=== PATIENT | male | born 1940 | race Caucasian/White ===

== ENCOUNTER 2017-03-21 09:13 | Inpatient (IN) | payer OTHER ==
[~2017-03-21] VITALS: Ht 167.6 cm; Wt 58.1 kg
[2017-03-21 09:46] LABS: EOSINOPHIL (%) 3.6 % (0-5); EOSINOPHIL COUNT 0.3 K/uL (0-0.3); HEMATOCRIT 27.3 % (38.0-50.0); IMMATURE GRANULOCYTE (%) 0.7 % (0.0-0.7); IMMATURE GRANULOCYTE COUNT 0.1 K/uL; INSTRUMENT ABS NEUTROPHIL CT 7.1 K/uL; LYMPHOCYTE COUNT 0.7 K/uL (1.0-2.8); MCH 29.1 PG (29.0-34.0); MCHC 31.9 G/DL (30.0-36.0); MCV 91.3 FL (86-99); MONOCYTE (%) 8.5 % (3-12); MONOCYTE COUNT 0.8 K/uL (0-0.8); NEUTROPHIL (%) 79.4 % (45-76); NEUTROPHIL COUNT 7.1 K/uL (1.8-6.4); PLATELET COUNT 158 K/uL (156-360); RBC DIS.WIDTH-CV 15.8 % (11.8-14.6); RBC DIS.WIDTH-SD 51.8 % (39-53); RED BLOOD COUNT 2.99 M/uL (4.00-5.50); WHITE BLOOD COUNT 8.9 K/uL (4.1-10.2)
[2017-03-21 09:54] LABS: CHLORIDE 96 mEq/L (99-109); POTASSIUM 4.3 mEq/L (3.7-5.4); SODIUM 138 mEq/L (136-147)
[2017-03-21 09:56] LABS: GLUCOSE 98 mg/dL (70-99)
[2017-03-21 09:57] LABS: ANION GAP 17 MEQ/L (2-14)
[2017-03-21 09:58] LABS: TOTAL BILIRUBIN 0.4 mg/dL (0.0-1.0)
[2017-03-21 10:00] LABS: ALKALINE PHOSPHATASE 58 IU/L (3-129); GFR ESTIMATE (CALCULATED) 6 mL/min/
[2017-03-21 10:01] LABS: UREA NITROGEN (BUN) 77 mg/dL (9-23)
[2017-03-21 10:07] LABS: TROP-I INTERPRETATION POSITIVE; TROPONIN-I 0.76 ng/mL (0.0-0.30)
[2017-03-21] MEDS ORDERED: ASPIR 8181 M1 PO (11:33)
[2017-03-21] MEDS ORDERED: KENALOG IN ORABA5 GM DT (11:33)
[2017-03-21] MEDS ORDERED: PROAIR HFA8.5 GM IH (11:35)
[2017-03-21] MEDS ORDERED: BRIMONIDINE TART5 ML RIGHT EYE (11:35)
[2017-03-21] MEDS ORDERED: FLONASE16 G1 BOTH NARES (11:36)
[2017-03-21] MEDS ORDERED: NIFEDIPINE ER60 MG PO (11:36)
[2017-03-21] MEDS ORDERED: ATARAX,VISTARIL25 MG PO (11:38)
[2017-03-21] MEDS ORDERED: LASIX40 MG PO (11:38)
[2017-03-21] MEDS ORDERED: TRAMADOL HCL50 MG PO (11:39)
[2017-03-21] MEDS ORDERED: ZANTAC150 MG PO (11:39)
[2017-03-21] MEDS ORDERED: COREG25 M1 PO (11:39)
[2017-03-21] MEDS ORDERED: TOPROL XL25 MG PO (11:40)
[2017-03-21] MEDS ORDERED: ATORVASTATIN CA20 MG PO (11:40)
[2017-03-21] MEDS ORDERED: MUCINEX600 MG PO (11:43)
[2017-03-21] MEDS ORDERED: EXCEDRIN EXTRA1 EACH PO (11:44)
[2017-03-21 12:04] VITALS: BP 170/72
[2017-03-21 15:22] LABS: INTER. NORMALIZED RATIO 1.1; PROTHROMBIN TIME 11.6 (9.2-11.2); PTT 36.2 (25-32)
[2017-03-21 16:13] LABS: TROP-I INTERPRETATION POSITIVE; TROPONIN-I 0.64 ng/mL (0.0-0.30)
[2017-03-21 22:00] VITALS: BP 181/85
[2017-03-21 22:13] LABS: TROP-I INTERPRETATION INDETERMINATE; TROPONIN-I 0.56 ng/mL (0.0-0.30)
[2017-03-21 23:51] VITALS: BP 107/52
[2017-03-22 03:40] VITALS: BP 144/65
[2017-03-22 07:04] LABS: ANION GAP 14 MEQ/L (2-14); CHLORIDE 97 MEQ/L (99-109); POTASSIUM 4.5 MEQ/L (3.7-5.4); SAMPLE HEMOLYSIS CHECK 0; SAMPLE ICTERIC CHECK 0; SAMPLE LIPEMIA CHECK 0; SODIUM 137 MEQ/L (136-147); UREA NITROGEN (BUN) 43 mg/dL (9-23)
[2017-03-22 07:05] LABS: GFR ESTIMATE (CALCULATED) 10 mL/min/; GLUCOSE 181 mg/dL (70-99)
[2017-03-22 07:10] VITALS: BP 154/71
[2017-03-22 11:47] VITALS: BP 172/77
[2017-03-22 12:04] VITALS: BP 130/62
[2017-03-22] MEDS ORDERED: CALCIUM ACETAT667 MG PO (15:42)
[2017-03-22 15:57] VITALS: BP 120/52
[2017-03-22 20:00] VITALS: BP 151/72
[2017-03-23] VITALS: BP 135/63
[2017-03-23 05:00] VITALS: BP 156/78
[2017-03-23 10:07] LABS: ANION GAP 18 MEQ/L (2-14); CHLORIDE 95 MEQ/L (99-109); POTASSIUM 3.9 MEQ/L (3.7-5.4); SAMPLE HEMOLYSIS CHECK 0; SAMPLE ICTERIC CHECK 0; SAMPLE LIPEMIA CHECK 0; SODIUM 136 MEQ/L (136-147)
[2017-03-23 10:09] LABS: MCH 29.7 PG (29.0-34.0); MCHC 31.7 G/DL (30.0-36.0); MCV 93.8 FL (86-99); NRBC (%) 0.2 /100 WBC (0-0); PLATELET COUNT 192 K/uL (156-360); RBC DIS.WIDTH-CV 16.9 % (11.8-14.6); RBC DIS.WIDTH-SD 55.7 % (39-53); RED BLOOD COUNT 2.56 M/uL (4.00-5.50)
[2017-03-23 10:38] LABS: WHITE BLOOD COUNT 13.6 K/uL (4.1-10.2)
[2017-03-23 10:46] LABS: GFR ESTIMATE (CALCULATED) 7 mL/min/; GLUCOSE 156 mg/dL (70-99); IRON 67 MCG/DL (35-150); UREA NITROGEN (BUN) 75 mg/dL (9-23)
[2017-03-23 11:33] VITALS: BP 177/82
[2017-03-23 15:13] VITALS: BP 139/63
[2017-03-23 21:01] VITALS: BP 166/74
[2017-03-23 23:25] VITALS: BP 126/62
[2017-03-24 06:51] VITALS: BP 151/68
[2017-03-24 07:25] LABS: HEMATOCRIT 25.7 % (38.0-50.0); MCH 29.4 PG (29.0-34.0); MCHC 31.1 G/DL (30.0-36.0); MCV 94.5 FL (86-99); MEAN PLAT.VOLUME 11.5 uM^3 (9.0-12.4); PLATELET COUNT 224 K/uL (156-360); RBC DIS.WIDTH-CV 17.2 % (11.8-14.6); RBC DIS.WIDTH-SD 56.7 % (39-53); RED BLOOD COUNT 2.72 M/uL (4.00-5.50); WHITE BLOOD COUNT 12.5 K/uL (4.1-10.2)
[2017-03-24 08:08] LABS: ANION GAP 14 MEQ/L (2-14); CHLORIDE 95 MEQ/L (99-109); GFR ESTIMATE (CALCULATED) 9 mL/min/; POTASSIUM 4.6 MEQ/L (3.7-5.4); SAMPLE HEMOLYSIS CHECK 0; SAMPLE ICTERIC CHECK 0; SAMPLE LIPEMIA CHECK 0; SODIUM 135 MEQ/L (136-147); UREA NITROGEN (BUN) 53 mg/dL (9-23)
[2017-03-24 08:16] LABS: GLUCOSE 79 mg/dL (70-99)
[2017-03-24] MEDS ORDERED: PREDNISONE10 MG PO (11:30)
[2017-03-24] MEDS ORDERED: SPIRIVA RESPIMAT4 GM IH (11:30)
[2017-03-24] MEDS ORDERED: ADVAIR HFA120 INHALA IH (11:30)
[2017-03-24] MEDS ORDERED: CLOPIDOGREL75 MG PO (11:30)
[2017-03-24] MEDS ORDERED: APRESOLINE25 MG PO (11:30)
[2017-03-24 12:20] VITALS: BP 99/48
[2017-03-24 15:01] VITALS: BP 139/63
[2017-03-24 19:17] VITALS: BP 173/74
[2017-03-24 23:23] VITALS: BP 150/67
[2017-03-25 03:45] VITALS: BP 163/68
[2017-03-25 08:13] VITALS: BP 174/97
[2017-03-25 11:02] VITALS: BP 130/63
[2017-03-25 14:47] VITALS: BP 166/73
== END 2017-03-25 16:15 | DRG 280 ==
LOC: EME 09:13 → EDOF 10:42 → 4EAST 10:42
PROVIDERS: Emergency Medicine; Internal Medicine; Internal Medicine Cardiovascular Disease; Physician Assistant
PROC: 4A023N7 Measurement of Cardiac Sampling and Pressure, Left Heart, Percutaneous Approach (ICD-10-PCS; principal; 2017-03-21)
PROC: B2151ZZ Fluoroscopy of Left Heart using Low Osmolar Contrast (ICD-10-PCS; principal; 2017-03-21)
PROC: B2111ZZ Fluoroscopy of Multiple Coronary Arteries using Low Osmolar Contrast (ICD-10-PCS; principal; 2017-03-21)
PROC: 5A1D60Z (ICD-10-PCS; 2017-03-21)
DX: I21.4 Non-ST elevation (NSTEMI) myocardial infarction (principal); N18.6 End stage renal disease; I12.0 Hypertensive chronic kidney disease with stage 5 chronic kidney disease or end stage renal disease; I50.9 Heart failure, unspecified; J40 Bronchitis, not specified as acute or chronic; J44.1 Chronic obstructive pulmonary disease with (acute) exacerbation; I73.9 Peripheral vascular disease, unspecified; I25.10 Atherosclerotic heart disease of native coronary artery without angina pectoris; I48.0 Paroxysmal atrial fibrillation; R60.9 Edema, unspecified; E78.5 Hyperlipidemia, unspecified; D63.1 Anemia in chronic kidney disease; Z95.5 Presence of coronary angioplasty implant and graft; Z99.2 Dependence on renal dialysis; I25.2 Old myocardial infarction; Z87.891 Personal history of nicotine dependence; Z99.81 Dependence on supplemental oxygen
CPT/HCPCS: 71010; 80048; 80053; 83540; 83880; 84100; 84466; 84484; 85025; 85027; 85610; 85730; 93005; 94640; 94640 76; 94760; 94799; 99281; 99285; C1769; C1887; J0360; J0881; J1644; J1756; J1940; J2250; J2920; J2930; J3010; J7512

== ENCOUNTER 2017-04-18 02:22 | Inpatient (IN) | payer OTHER ==
[~2017-04-18] VITALS: Ht 167.6 cm; Wt 58.5 kg
[~2017-04-18 02:22] MED LIST: ADVAIR HFA120 INHALA IH; APRESOLINE25 MG PO; ASPIR 8181 M1 PO; ATARAX,VISTARIL25 MG PO; ATORVASTATIN CA20 MG PO; BRIMONIDINE TART5 ML RIGHT EYE; CALCIUM ACETAT667 MG PO; CLOPIDOGREL75 MG PO; COREG25 M1 PO; EXCEDRIN EXTRA1 EACH PO; FLONASE16 G1 BOTH NARES; KENALOG IN ORABA5 GM DT; LASIX40 MG PO; MUCINEX600 MG PO; NIFEDIPINE ER60 MG PO; PREDNISONE10 MG PO; PROAIR HFA8.5 GM IH; SPIRIVA RESPIMAT4 GM IH; TOPROL XL25 MG PO; TRAMADOL HCL50 MG PO; ZANTAC150 MG PO
[2017-04-18 03:17] LABS: CHLORIDE 92 mEq/L (99-109); POTASSIUM 4.3 mEq/L (3.7-5.4); SODIUM 133 mEq/L (136-147)
[2017-04-18 03:19] LABS: GLUCOSE 107 mg/dL (70-99)
[2017-04-18 03:20] LABS: ANION GAP 13 MEQ/L (2-14); INTER. NORMALIZED RATIO 1.1; PROTHROMBIN TIME 10.9 (9.2-11.2); PTT 38.7 (25-32)
[2017-04-18 03:21] LABS: HEMATOCRIT 27.8 % (38.0-50.0); MCH 29.9 PG (29.0-34.0); MCHC 31.7 G/DL (30.0-36.0); MCV 94.6 FL (86-99); PLATELET COUNT 197 K/uL (156-360); RBC DIS.WIDTH-CV 16.9 % (11.8-14.6); RED BLOOD COUNT 2.94 M/uL (4.00-5.50); WHITE BLOOD COUNT 8.6 K/uL (4.1-10.2)
[2017-04-18 03:23] LABS: GFR ESTIMATE (CALCULATED) 8 mL/min/; UREA NITROGEN (BUN) 58 mg/dL (9-23)
[2017-04-18 03:31] LABS: TROP-I INTERPRETATION NEGATIVE; TROPONIN-I 0.12 ng/mL (0.0-0.30)
[2017-04-18 07:56] VITALS: BP 149/80
[2017-04-18 10:50] LABS: TROP-I INTERPRETATION NEGATIVE
[2017-04-18 12:07] VITALS: BP 169/77
[2017-04-18 17:25] VITALS: BP 161/70
[2017-04-18 18:42] LABS: TROP-I INTERPRETATION NEGATIVE; TROPONIN-I 0.13 ng/mL (0.0-0.30)
[2017-04-18 19:47] VITALS: BP 130/62
[2017-04-18 23:26] VITALS: BP 142/64
[2017-04-19 03:58] VITALS: BP 140/64
[2017-04-19 06:00] LABS: TROP-I INTERPRETATION NEGATIVE
[2017-04-19 08:07] VITALS: BP 159/72
[2017-04-19 15:26] VITALS: BP 156/67
[2017-04-19 19:44] VITALS: BP 164/70
[2017-04-19 23:56] VITALS: BP 179/85
[2017-04-20 01:57] VITALS: BP 188/62
[2017-04-20 04:10] VITALS: BP 168/75
[2017-04-20 07:18] LABS: HEMATOCRIT 28.6 % (38.0-50.0); MCHC 31.1 G/DL (30.0-36.0); MCV 96.3 FL (86-99); MEAN PLAT.VOLUME 10.9 uM^3 (9.0-12.4); PLATELET COUNT 243 K/uL (156-360); RBC DIS.WIDTH-CV 17.1 % (11.8-14.6); RBC DIS.WIDTH-SD 60.4 % (39-53); RED BLOOD COUNT 2.97 M/uL (4.00-5.50); WHITE BLOOD COUNT 8.4 K/uL (4.1-10.2)
[2017-04-20 07:39] LABS: ANION GAP 9 MEQ/L (2-14); CHLORIDE 96 MEQ/L (99-109); GFR ESTIMATE (CALCULATED) 8 mL/min/; SAMPLE HEMOLYSIS CHECK 0; SAMPLE ICTERIC CHECK 0; SAMPLE LIPEMIA CHECK 0; SODIUM 133 MEQ/L (136-147); UREA NITROGEN (BUN) 46 mg/dL (9-23)
[2017-04-20 07:40] LABS: GLUCOSE 74 mg/dL (70-99)
[2017-04-20 07:41] LABS: POTASSIUM 5.9 MEQ/L (3.7-5.4)
[2017-04-20 20:00] VITALS: BP 145/65
[2017-04-21] VITALS (7 sets, daily range): BP systolic 143–177; BP diastolic 66–90
[2017-04-21 11:38] LABS: HBSG INDEX 0.24
[2017-04-21 11:39] LABS: AHBS INDEX 0.97; HEPATITIS B SURFACE ANTIBODY Nonreactive
[2017-04-21 14:08] LABS: AHBS INDEX 0.51; HEPATITIS B SURFACE ANTIBODY Nonreactive
[2017-04-22 03:57] VITALS: BP 148/68
[2017-04-22 07:38] LABS: ANION GAP 14 MEQ/L (2-14); CHLORIDE 97 MEQ/L (99-109); GFR ESTIMATE (CALCULATED) 8 mL/min/; GLUCOSE 74 mg/dL (70-99); POTASSIUM 4.9 MEQ/L (3.7-5.4); SAMPLE HEMOLYSIS CHECK 0; SAMPLE ICTERIC CHECK 0; SAMPLE LIPEMIA CHECK 0; SODIUM 137 MEQ/L (136-147); UREA NITROGEN (BUN) 52 mg/dL (9-23)
[2017-04-22 07:43] VITALS: BP 159/73
[2017-04-22 11:47] VITALS: BP 144/76
[2017-04-22 16:21] VITALS: BP 194/84
[2017-04-22 19:35] VITALS: BP 187/76
[2017-04-22 23:31] VITALS: BP 172/77
[2017-04-23 03:56] VITALS: BP 175/74
[2017-04-23 07:25] VITALS: BP 177/74
[2017-04-23 08:27] LABS: HEMATOCRIT 27.8 % (38.0-50.0); MCH 30.3 PG (29.0-34.0); MCHC 32.4 G/DL (30.0-36.0); MCV 93.6 FL (86-99); MEAN PLAT.VOLUME 10.8 uM^3 (9.0-12.4); PLATELET COUNT 288 K/uL (156-360); RBC DIS.WIDTH-CV 16.9 % (11.8-14.6); RBC DIS.WIDTH-SD 57.5 % (39-53); RED BLOOD COUNT 2.97 M/uL (4.00-5.50); WHITE BLOOD COUNT 8.4 K/uL (4.1-10.2)
[2017-04-23 08:47] LABS: ANION GAP 13 MEQ/L (2-14); CHLORIDE 95 MEQ/L (99-109); GFR ESTIMATE (CALCULATED) 6 mL/min/; GLUCOSE 116 mg/dL (70-99); POTASSIUM 4.9 MEQ/L (3.7-5.4); SAMPLE HEMOLYSIS CHECK 0; SAMPLE ICTERIC CHECK 0; SAMPLE LIPEMIA CHECK 0; SODIUM 135 MEQ/L (136-147); UREA NITROGEN (BUN) 70 mg/dL (9-23)
[2017-04-23 12:06] VITALS: BP 126/61
[2017-04-23 15:31] VITALS: BP 124/58
[2017-04-23 20:04] VITALS: BP 138/66
[2017-04-23 23:57] VITALS: BP 136/63
[2017-04-24 03:48] VITALS: BP 132/63
[2017-04-24 07:04] VITALS: BP 157/70
[2017-04-24 07:14] LABS: ALKALINE PHOSPHATASE 72 IU/L (3-129); ANION GAP 11 MEQ/L (2-14); CHLORIDE 93 MEQ/L (99-109); POTASSIUM 4.7 MEQ/L (3.7-5.4); SAMPLE HEMOLYSIS CHECK 0; SAMPLE ICTERIC CHECK 0; SAMPLE LIPEMIA CHECK 0; SODIUM 135 MEQ/L (136-147); TOTAL BILIRUBIN 0.3 MG/DL (0.0-1.0); UREA NITROGEN (BUN) 38 mg/dL (9-23)
[2017-04-24 07:16] LABS: GFR ESTIMATE (CALCULATED) 10 mL/min/; GLUCOSE 82 mg/dL (70-99)
[2017-04-24] MEDS ORDERED: AUGMENTIN875 MG PO (08:23)
[2017-04-24] MEDS ORDERED: AUGMENTIN500 MG PO (09:00)
[2017-04-24 09:48] LABS: INTACT PARATHYROID HORMONE 77 pg/mL (10-69)
== END 2017-04-24 11:36 | DRG 190 ==
LOC: EME → EDBD 02:22 → EME 02:22 → 3EAST 04:32 → EDOF 04:32 → 3EAST 07:06
PROVIDERS: Emergency Medicine; Internal Medicine; Internal Medicine Cardiovascular Disease; Internal Medicine Nephrology
DX: J44.0 Chronic obstructive pulmonary disease with (acute) lower respiratory infection (principal); J18.9 Pneumonia, unspecified organism; I13.2 Hypertensive heart and chronic kidney disease with heart failure and with stage 5 chronic kidney disease, or end stage renal disease; N18.6 End stage renal disease; I48.91 Unspecified atrial fibrillation; I25.82 Chronic total occlusion of coronary artery; E83.52 Hypercalcemia; I50.32 Chronic diastolic (congestive) heart failure; E78.5 Hyperlipidemia, unspecified; I25.119 Atherosclerotic heart disease of native coronary artery with unspecified angina pectoris; D63.1 Anemia in chronic kidney disease; I25.2 Old myocardial infarction; I73.9 Peripheral vascular disease, unspecified; Z80.1 Family history of malignant neoplasm of trachea, bronchus and lung; Z87.891 Personal history of nicotine dependence; Z95.5 Presence of coronary angioplasty implant and graft; Z99.2 Dependence on renal dialysis
CPT/HCPCS: 71010; 71020; 80048; 80053; 80069; 83605; 83970; 84100; 84484; 85027; 85610; 85730; 86706; 87040; 87340; 93005; 94010; 94640; 94640 76; 94760; 94799; 99202; 99281; 99285; J0456; J0692; J0696; J0881; J1644; J2270; J2405; J7050; Q0177

== ENCOUNTER 2017-05-07 16:36 | Inpatient (IN) | payer OTHER ==
[~2017-05-07] VITALS: Ht 167.6 cm; Wt 55.0 kg
[~2017-05-07 16:36] MED LIST changes: +AUGMENTIN500 MG PO; +AUGMENTIN875 MG PO
[2017-05-07 17:25] LABS: HEMATOCRIT 36.2 % (38.0-50.0); MCH 29.7 PG (29.0-34.0); MCV 92.6 FL (86-99); MEAN PLAT.VOLUME 10.8 uM^3 (9.0-12.4); PLATELET COUNT 204 K/uL (156-360); RBC DIS.WIDTH-CV 20.1 % (11.8-14.6); RED BLOOD COUNT 3.91 M/uL (4.00-5.50); WHITE BLOOD COUNT 15.6 K/uL (4.1-10.2)
[2017-05-07 18:02] LABS: CHLORIDE 97 mEq/L (99-109); POTASSIUM 3.8 mEq/L (3.7-5.4); SODIUM 140 mEq/L (136-147)
[2017-05-07 18:04] LABS: GLUCOSE 110 mg/dL (70-99)
[2017-05-07 18:05] LABS: ANION GAP 14 MEQ/L (2-14)
[2017-05-07 18:08] LABS: GFR ESTIMATE (CALCULATED) 16 mL/min/
[2017-05-07 18:09] LABS: UREA NITROGEN (BUN) 30 mg/dL (9-23)
[2017-05-07 18:13] LABS: TROP-I INTERPRETATION INDETERMINATE; TROPONIN-I 0.35 ng/mL (0.0-0.30)
[2017-05-07 21:42] VITALS: BP 200/89
[2017-05-07 22:44] LABS: TROP-I INTERPRETATION INDETERMINATE; TROPONIN-I 0.48 ng/mL (0.0-0.30)
[2017-05-08] VITALS (8 sets, daily range): BP systolic 135–186; BP diastolic 65–91
[2017-05-08 00:50] LABS: INTER. NORMALIZED RATIO 1.1; PTT 33.8 (25-32)
[2017-05-08] MEDS ORDERED: OMEPRAZOLE20 MG PO (08:55)
[2017-05-08] MEDS ORDERED: MIRTAZAPINE7.5 MG PO (08:56)
[2017-05-08] MEDS ORDERED: SPIRIVA RESPIMAT4 GM IH (08:57)
[2017-05-08] MEDS ORDERED: ADVAIR HFA120 INHALA IH (08:58)
[2017-05-08] MEDS ORDERED: HYDRALAZINE HCL50 MG PO (09:03)
[2017-05-08] MEDS ORDERED: DULCOLAX10 MG PR (09:05)
[2017-05-08] MEDS ORDERED: FLEET ENEMA-AD118 ML PR (09:06)
[2017-05-08] MEDS ORDERED: MILK OF MAGN PO (09:07)
[2017-05-08 11:14] LABS: TROP-I INTERPRETATION POSITIVE
[2017-05-08 15:29] LABS: TROP-I INTERPRETATION INDETERMINATE; TROPONIN-I 0.56 ng/mL (0.0-0.30)
[2017-05-09 00:25] VITALS: BP 176/81
[2017-05-09 03:00] VITALS: BP 146/69
[2017-05-09 06:21] LABS: EOSINOPHIL (%) 0 % (0-5); HEMATOCRIT 29.3 % (38.0-50.0); IMMATURE GRANULOCYTE (%) 0.8 % (0.0-0.7); IMMATURE GRANULOCYTE COUNT 0.1 K/uL; INSTRUMENT ABS NEUTROPHIL CT 11.6 K/uL; LYMPHOCYTE COUNT 0.4 K/uL (1.0-2.8); MCH 29.9 PG (29.0-34.0); MCHC 31.7 G/DL (30.0-36.0); MCV 94.2 FL (86-99); MEAN PLAT.VOLUME 12.1 uM^3 (9.0-12.4); MONOCYTE (%) 3.7 % (3-12); MONOCYTE COUNT 0.5 K/uL (0-0.8); NEUTROPHIL COUNT 11.6 K/uL (1.8-6.4); PLATELET COUNT 143 K/uL (156-360); RBC DIS.WIDTH-CV 19.1 % (11.8-14.6); RBC DIS.WIDTH-SD 66.1 % (39-53); WHITE BLOOD COUNT 12.6 K/uL (4.1-10.2)
[2017-05-09 06:30] LABS: ANION GAP 19 MEQ/L (2-14); CHLORIDE 95 MEQ/L (99-109); GLUCOSE 129 mg/dL (70-99); SAMPLE HEMOLYSIS CHECK 0; SAMPLE ICTERIC CHECK 0; SAMPLE LIPEMIA CHECK 0; SODIUM 138 MEQ/L (136-147)
[2017-05-09 06:35] LABS: RED BLOOD COUNT 3.11 M/uL (4.00-5.50)
[2017-05-09 07:25] VITALS: BP 128/64
[2017-05-09 07:39] LABS: GFR ESTIMATE (CALCULATED) 8 mL/min/; POTASSIUM 4.8 MEQ/L (3.7-5.4); UREA NITROGEN (BUN) 90 mg/dL (9-23)
[2017-05-09 16:32] VITALS: BP 162/84
[2017-05-09 19:00] VITALS: BP 165/87
[2017-05-10] VITALS (7 sets, daily range): BP systolic 120–146; BP diastolic 56–79
[2017-05-10 07:01] LABS: HEMATOCRIT 31.1 % (38.0-50.0); MCH 29.2 PG (29.0-34.0); MCHC 30.5 G/DL (30.0-36.0); MCV 95.7 FL (86-99); MEAN PLAT.VOLUME 11.8 uM^3 (9.0-12.4); PLATELET COUNT 143 K/uL (156-360); RBC DIS.WIDTH-CV 18.5 % (11.8-14.6); RBC DIS.WIDTH-SD 65.1 % (39-53); RED BLOOD COUNT 3.25 M/uL (4.00-5.50); WHITE BLOOD COUNT 10.5 K/uL (4.1-10.2)
[2017-05-10 07:26] LABS: ANION GAP 14 MEQ/L (2-14); CHLORIDE 96 MEQ/L (99-109); GFR ESTIMATE (CALCULATED) 11 mL/min/; POTASSIUM 4.3 MEQ/L (3.7-5.4); SAMPLE HEMOLYSIS CHECK 0; SAMPLE ICTERIC CHECK 0; SAMPLE LIPEMIA CHECK 0; SODIUM 139 MEQ/L (136-147); UREA NITROGEN (BUN) 55 mg/dL (9-23)
[2017-05-10 07:27] LABS: GLUCOSE 80 mg/dL (70-99)
[2017-05-11] VITALS (7 sets, daily range): BP systolic 148–185; BP diastolic 68–82
[2017-05-11 08:39] LABS: HEMATOCRIT 29.9 % (38.0-50.0); MCH 29.3 PG (29.0-34.0); MCHC 30.8 G/DL (30.0-36.0); MCV 95.2 FL (86-99); MEAN PLAT.VOLUME 12.4 uM^3 (9.0-12.4); PLATELET COUNT 140 K/uL (156-360); RBC DIS.WIDTH-CV 18.2 % (11.8-14.6); RBC DIS.WIDTH-SD 63.5 % (39-53); RED BLOOD COUNT 3.14 M/uL (4.00-5.50); WHITE BLOOD COUNT 11.5 K/uL (4.1-10.2)
[2017-05-11 08:47] LABS: ANION GAP 16 MEQ/L (2-14); CHLORIDE 93 MEQ/L (99-109); POTASSIUM 4.2 MEQ/L (3.7-5.4); SAMPLE HEMOLYSIS CHECK 0; SAMPLE ICTERIC CHECK 0; SAMPLE LIPEMIA CHECK 0; SODIUM 138 MEQ/L (136-147)
[2017-05-11 08:53] LABS: GFR ESTIMATE (CALCULATED) 7 mL/min/
[2017-05-11 08:56] LABS: GLUCOSE 115 mg/dL (70-99); UREA NITROGEN (BUN) 99 mg/dL (9-23)
[2017-05-11 09:44] LABS: EOSINOPHIL (%) 0.7 % (0-5); EOSINOPHIL COUNT 0.1 K/uL (0-0.3); IMMATURE GRANULOCYTE (%) 0.8 % (0.0-0.7); LYMPHOCYTE COUNT 1.2 K/uL (1.0-2.8); MONOCYTE (%) 6.2 % (3-12); MONOCYTE COUNT 0.7 K/uL (0-0.8); NEUTROPHIL (%) 81.8 % (45-76); NEUTROPHIL COUNT 9.4 K/uL (1.8-6.4)
[2017-05-11 09:45] LABS: IMMATURE GRANULOCYTE COUNT 0.1 K/uL; INSTRUMENT ABS NEUTROPHIL CT 9.4 K/uL
[2017-05-12 03:46] VITALS: BP 156/76
[2017-05-12 08:43] VITALS: BP 127/77
[2017-05-12 12:44] VITALS: BP 155/84
[2017-05-12 16:17] VITALS: BP 142/67
[2017-05-12 19:38] VITALS: BP 147/86
[2017-05-12] MEDS ORDERED: BRIMONIDINE TART5 ML RIGHT EYE (20:17)
[2017-05-12] MEDS ORDERED: TRAMADOL HCL50 MG PO (20:17)
[2017-05-12] MEDS ORDERED: HYDRALAZINE HCL50 MG PO (20:17)
[2017-05-12] MEDS ORDERED: NIFEDIPINE ER60 MG PO (20:17)
[2017-05-12] MEDS ORDERED: ELIQUIS2.5 MG PO (20:17)
[2017-05-12] MEDS ORDERED: FLONASE16 G1 BOTH NARES (20:17)
[2017-05-12] MEDS ORDERED: OMEPRAZOLE20 MG PO (20:17)
[2017-05-12] MEDS ORDERED: NEPHRO-VITE,1 TABLET PO (20:17)
[2017-05-12] MEDS ORDERED: ADVAIR HFA120 INHALA IH (20:17)
[2017-05-12] MEDS ORDERED: SPIRIVA RESPIMAT4 GM IH (20:17)
[2017-05-12] MEDS ORDERED: MIRTAZAPINE7.5 MG PO (20:17)
[2017-05-12] MEDS ORDERED: LASIX40 MG PO (20:17)
[2017-05-12] MEDS ORDERED: ATORVASTATIN CA20 MG PO (20:17)
[2017-05-12] MEDS ORDERED: ATARAX,VISTARIL25 MG PO (20:17)
[2017-05-12] MEDS ORDERED: LOPRESSOR50 MG PO (20:17)
[2017-05-12] MEDS ORDERED: PREDNISONE10 MG PO (20:17)
[2017-05-12] MEDS ORDERED: PROAIR HFA8.5 GM IH (20:17)
== END 2017-05-12 22:18 | disposition home health service (06) | DRG 280 ==
LOC: EME 16:36 → EDOF 19:51 → 4EAST 19:51 → 5EAST 19:51 → 4EAST 05-08 01:33 → 5EAST 05-09 22:21
PROVIDERS: Emergency Medicine; Internal Medicine; Internal Medicine Nephrology
PROC: 5A1D60Z (ICD-10-PCS; principal; 2017-05-09)
DX: I21.4 Non-ST elevation (NSTEMI) myocardial infarction (principal); I13.2 Hypertensive heart and chronic kidney disease with heart failure and with stage 5 chronic kidney disease, or end stage renal disease; I50.33 Acute on chronic diastolic (congestive) heart failure; N18.6 End stage renal disease; J44.1 Chronic obstructive pulmonary disease with (acute) exacerbation; I48.0 Paroxysmal atrial fibrillation; I48.2 Chronic atrial fibrillation; Z99.2 Dependence on renal dialysis; J98.11 Atelectasis; D63.1 Anemia in chronic kidney disease; I25.10 Atherosclerotic heart disease of native coronary artery without angina pectoris; I70.0 Atherosclerosis of aorta; I73.9 Peripheral vascular disease, unspecified; E78.5 Hyperlipidemia, unspecified; Z95.5 Presence of coronary angioplasty implant and graft; I25.2 Old myocardial infarction; Z82.49 Family history of ischemic heart disease and other diseases of the circulatory system; Z87.891 Personal history of nicotine dependence
CPT/HCPCS: 71020; 71250; 80048; 80069; 84484; 85025; 85027; 85610; 85730; 93005; 94640 76; 94760; 94799; 99281; 99285; J0696; J1200; J1644; J1756; J1940; J2920; J7050; J7512

== ENCOUNTER 2017-06-04 09:38 | Inpatient (IN) | payer OTHER ==
[~2017-06-04] VITALS: Ht 167.6 cm; Wt 59.1 kg
[~2017-06-04 09:38] MED LIST changes: +DULCOLAX10 MG PR; +ELIQUIS2.5 MG PO; +FLEET ENEMA-AD118 ML PR; +HYDRALAZINE HCL50 MG PO; +LOPRESSOR50 MG PO; +MILK OF MAGN PO; +MIRTAZAPINE7.5 MG PO; +NEPHRO-VITE,1 TABLET PO; +OMEPRAZOLE20 MG PO
[2017-06-04 10:39] LABS: CHLORIDE 93 mEq/L (99-109); POTASSIUM 5.8 mEq/L (3.7-5.4); SODIUM 133 mEq/L (136-147)
[2017-06-04 10:41] LABS: GLUCOSE 130 mg/dL (70-99)
[2017-06-04 10:43] LABS: ANION GAP 18 MEQ/L (2-14)
[2017-06-04 10:45] LABS: GFR ESTIMATE (CALCULATED) 7 mL/min/
[2017-06-04 10:46] LABS: UREA NITROGEN (BUN) 59 mg/dL (9-23)
[2017-06-04 10:52] LABS: TROP-I INTERPRETATION NEGATIVE; TROPONIN-I 0.08 ng/mL (0.0-0.30)
[2017-06-04 10:53] LABS: EOSINOPHIL (%) 3.2 % (0-5); EOSINOPHIL COUNT 0.2 K/uL (0-0.3); HEMATOCRIT 23.3 % (38.0-50.0); IMMATURE GRANULOCYTE (%) 0.8 % (0.0-0.7); IMMATURE GRANULOCYTE COUNT 0.1 K/uL; INSTRUMENT ABS NEUTROPHIL CT 5.1 K/uL; LYMPHOCYTE COUNT 1.1 K/uL (1.0-2.8); MCH 28.8 PG (29.0-34.0); MCV 95.9 FL (86-99); MEAN PLAT.VOLUME 11.2 uM^3 (9.0-12.4); MONOCYTE (%) 11.6 % (3-12); MONOCYTE COUNT 0.9 K/uL (0-0.8); NEUTROPHIL (%) 69.3 % (45-76); NEUTROPHIL COUNT 5.1 K/uL (1.8-6.4); NRBC (%) 0.7 /100 WBC (0-0); PLATELET COUNT 156 K/uL (156-360); RBC DIS.WIDTH-CV 17.3 % (11.8-14.6); RBC DIS.WIDTH-SD 60.1 % (39-53); RED BLOOD COUNT 2.43 M/uL (4.00-5.50); WHITE BLOOD COUNT 7.4 K/uL (4.1-10.2)
[2017-06-04 12:45] VITALS: BP 96/52
[2017-06-04] MEDS ORDERED: COREG25 M1 PO (12:59)
[2017-06-04] MEDS ORDERED: PERCOCET 5/31 TABLET PO (13:00)
[2017-06-04] MEDS ORDERED: RANITIDINE HCL150 MG PO (13:00)
[2017-06-04] MEDS ORDERED: DECARA50000 UNIT PO (13:01)
[2017-06-04] MEDS ORDERED: CALCIUM ACETAT667 MG PO (13:01)
[2017-06-04 13:02] VITALS: BP 96/52
[2017-06-04] MEDS ORDERED: TYLENOL EXTRA500 MG PO (13:02)
[2017-06-04] MEDS ORDERED: LEVOTHYROXINE75 MCG PO (13:02)
[2017-06-04] MEDS ORDERED: LORATADINE10 M2 PO (13:02)
[2017-06-04] MEDS ORDERED: HYDROXYZINE HCL25 MG PO (13:07)
[2017-06-04] MEDS ORDERED: TRAMADOL HCL50 MG PO (13:07)
[2017-06-04 13:19] VITALS: BP 87/46
[2017-06-04 18:05] VITALS: BP 132/61
[2017-06-04 18:59] LABS: HEMATOCRIT 31.8 % (38.0-50.0); MCV 93.8 FL (86-99)
[2017-06-04 20:11] LABS: ABSOLUTE RETICULOCYTE CT. 0.1 M/uL (0.02-0.08); IMM.RETIC FRACTION 36.3 % (3-19); RETIC HGB EQUIVALENT 28.2 (28-36); RETICULOCYTE COUNT 2.6 % (0.5-1.8)
[2017-06-04 20:37] LABS: IRON 121 MCG/DL (35-150)
[2017-06-04 20:53] LABS: LACTATE DEHYDROGENASE 247 IU/L (20-246)
[2017-06-04 22:05] LABS: FERRITIN > 1500 NG/ML (22-322)
[2017-06-04 23:22] VITALS: BP 109/58
[2017-06-05 00:44] LABS: HEMATOCRIT 27.9 % (38.0-50.0); MCV 91.2 FL (86-99)
[2017-06-05 01:38] VITALS: BP 112/55
[2017-06-05 06:15] LABS: HEMATOCRIT 26.9 % (38.0-50.0); MCH 30.3 PG (29.0-34.0); MCHC 32.7 G/DL (30.0-36.0); MCV 92.8 FL (86-99); MEAN PLAT.VOLUME 11.5 uM^3 (9.0-12.4); NRBC (%) 1.8 /100 WBC (0-0); PLATELET COUNT 138 K/uL (156-360); RBC DIS.WIDTH-SD 59.1 % (39-53); WHITE BLOOD COUNT 8.7 K/uL (4.1-10.2)
[2017-06-05 08:08] VITALS: BP 111/56
[2017-06-05 10:29] LABS: HBSG INDEX 0.19
[2017-06-05 11:12] LABS: ANION GAP 9 MEQ/L (2-14); CHLORIDE 101 MEQ/L (99-109); GFR ESTIMATE (CALCULATED) 11 mL/min/; GLUCOSE 109 mg/dL (70-99); SAMPLE HEMOLYSIS CHECK 2; SAMPLE ICTERIC CHECK 0; SAMPLE LIPEMIA CHECK 0; SODIUM 136 MEQ/L (136-147); UREA NITROGEN (BUN) 36 mg/dL (9-23)
[2017-06-05 11:13] LABS: POTASSIUM ND MEQ/L (3.7-5.4)
[2017-06-05 13:01] LABS: HEMATOCRIT 27.7 % (38.0-50.0); MCV 94.2 FL (86-99)
[2017-06-05 13:23] LABS: POTASSIUM 4.2 MEQ/L (3.7-5.4)
[2017-06-05 16:13] VITALS: BP 123/58
[2017-06-05 20:50] VITALS: BP 107/51
[2017-06-05 23:38] VITALS: BP 99/54
[2017-06-06 07:40] VITALS: BP 122/55
[2017-06-06 08:37] LABS: EOSINOPHIL (%) 1.5 % (0-5); EOSINOPHIL COUNT 0.1 K/uL (0-0.3); HEMATOCRIT 28.8 % (38.0-50.0); IMMATURE GRANULOCYTE (%) 0.5 % (0.0-0.7); IMMATURE GRANULOCYTE COUNT 0.1 K/uL; INSTRUMENT ABS NEUTROPHIL CT 7.6 K/uL; LYMPHOCYTE COUNT 0.6 K/uL (1.0-2.8); MCH 29.7 PG (29.0-34.0); MCHC 32.3 G/DL (30.0-36.0); MEAN PLAT.VOLUME 11.1 uM^3 (9.0-12.4); MONOCYTE (%) 7.8 % (3-12); MONOCYTE COUNT 0.7 K/uL (0-0.8); NEUTROPHIL (%) 83.9 % (45-76); NEUTROPHIL COUNT 7.6 K/uL (1.8-6.4); NRBC (%) 0.9 /100 WBC (0-0); PLATELET COUNT 154 K/uL (156-360); RBC DIS.WIDTH-SD 59.2 % (39-53); RED BLOOD COUNT 3.13 M/uL (4.00-5.50); WHITE BLOOD COUNT 9.1 K/uL (4.1-10.2)
[2017-06-06 08:47] LABS: ANION GAP 13 MEQ/L (2-14); CHLORIDE 99 MEQ/L (99-109); POTASSIUM 4.2 MEQ/L (3.7-5.4); SAMPLE HEMOLYSIS CHECK 0; SAMPLE ICTERIC CHECK 0; SAMPLE LIPEMIA CHECK 0; SODIUM 137 MEQ/L (136-147)
[2017-06-06 08:56] LABS: GFR ESTIMATE (CALCULATED) 8 mL/min/; GLUCOSE 107 mg/dL (70-99); UREA NITROGEN (BUN) 50 mg/dL (9-23)
[2017-06-06 09:55] LABS: TROP-I INTERPRETATION NEGATIVE; TROPONIN-I 0.09 ng/mL (0.0-0.30)
[2017-06-06 11:00] VITALS: BP 147/63
[2017-06-06 16:00] VITALS: BP 104/56
[2017-06-06 18:32] LABS: TROP-I INTERPRETATION NEGATIVE
[2017-06-06 19:43] VITALS: BP 116/56
[2017-06-06 23:16] VITALS: BP 111/51
[2017-06-07 02:14] LABS: TROP-I INTERPRETATION NEGATIVE; TROPONIN-I 0.09 ng/mL (0.0-0.30)
[2017-06-07 06:02] LABS: EOSINOPHIL (%) 2.4 % (0-5); EOSINOPHIL COUNT 0.2 K/uL (0-0.3); HEMATOCRIT 28.6 % (38.0-50.0); IMMATURE GRANULOCYTE (%) 0.4 % (0.0-0.7); INSTRUMENT ABS NEUTROPHIL CT 5.4 K/uL; LYMPHOCYTE COUNT 0.8 K/uL (1.0-2.8); MCH 29.4 PG (29.0-34.0); MCHC 31.5 G/DL (30.0-36.0); MCV 93.5 FL (86-99); MEAN PLAT.VOLUME 11.1 uM^3 (9.0-12.4); MONOCYTE (%) 11.2 % (3-12); MONOCYTE COUNT 0.8 K/uL (0-0.8); NEUTROPHIL (%) 75.1 % (45-76); NEUTROPHIL COUNT 5.4 K/uL (1.8-6.4); PLATELET COUNT 135 K/uL (156-360); RBC DIS.WIDTH-CV 17.8 % (11.8-14.6); RBC DIS.WIDTH-SD 60.3 % (39-53); RED BLOOD COUNT 3.06 M/uL (4.00-5.50); WHITE BLOOD COUNT 7.2 K/uL (4.1-10.2)
[2017-06-07 06:34] LABS: ANION GAP 12 MEQ/L (2-14); CHLORIDE 99 MEQ/L (99-109); GFR ESTIMATE (CALCULATED) 11 mL/min/; GLUCOSE 87 mg/dL (70-99); POTASSIUM 3.8 MEQ/L (3.7-5.4); SAMPLE HEMOLYSIS CHECK 0; SAMPLE ICTERIC CHECK 0; SAMPLE LIPEMIA CHECK 0; SODIUM 137 MEQ/L (136-147); UREA NITROGEN (BUN) 34 mg/dL (9-23)
[2017-06-07 08:44] VITALS: BP 128/59
[2017-06-07 12:12] VITALS: BP 133/60
[2017-06-07 16:52] VITALS: BP 140/63
[2017-06-07 19:08] VITALS: BP 136/62
[2017-06-07 23:30] VITALS: BP 131/61
[2017-06-08 03:20] VITALS: BP 137/63
[2017-06-08 07:37] VITALS: BP 125/60
[2017-06-08 09:14] LABS: EOSINOPHIL (%) 4.3 % (0-5); EOSINOPHIL COUNT 0.3 K/uL (0-0.3); HEMATOCRIT 26.5 % (38.0-50.0); IMMATURE GRANULOCYTE (%) 0.6 % (0.0-0.7); LYMPHOCYTE COUNT 0.6 K/uL (1.0-2.8); MCH 30.1 PG (29.0-34.0); MCHC 31.7 G/DL (30.0-36.0); MEAN PLAT.VOLUME 11.2 uM^3 (9.0-12.4); MONOCYTE (%) 11.9 % (3-12); MONOCYTE COUNT 0.8 K/uL (0-0.8); NEUTROPHIL (%) 73.9 % (45-76); NRBC (%) 0.4 /100 WBC (0-0); PLATELET COUNT 139 K/uL (156-360); RBC DIS.WIDTH-CV 17.8 % (11.8-14.6); RBC DIS.WIDTH-SD 61.4 % (39-53); RED BLOOD COUNT 2.79 M/uL (4.00-5.50); WHITE BLOOD COUNT 6.8 K/uL (4.1-10.2)
[2017-06-08 09:29] LABS: ANION GAP 8 MEQ/L (2-14); CHLORIDE 97 MEQ/L (99-109); GFR ESTIMATE (CALCULATED) 7 mL/min/; POTASSIUM 4.3 MEQ/L (3.7-5.4); SAMPLE HEMOLYSIS CHECK 0; SAMPLE ICTERIC CHECK 0; SAMPLE LIPEMIA CHECK 0; SODIUM 134 MEQ/L (136-147)
[2017-06-08 09:31] LABS: GLUCOSE 136 mg/dL (70-99); UREA NITROGEN (BUN) 54 mg/dL (9-23)
[2017-06-08 13:08] VITALS: BP 139/64
[2017-06-08 15:41] VITALS: BP 127/60
[2017-06-08 19:28] VITALS: BP 128/59
[2017-06-08 23:17] VITALS: BP 143/73
[2017-06-09 06:01] LABS: HEMATOCRIT 26.8 % (38.0-50.0); MCH 29.4 PG (29.0-34.0); MCHC 31.3 G/DL (30.0-36.0); MCV 93.7 FL (86-99); MEAN PLAT.VOLUME 11.1 uM^3 (9.0-12.4); PLATELET COUNT 143 K/uL (156-360); RBC DIS.WIDTH-CV 17.3 % (11.8-14.6); RBC DIS.WIDTH-SD 58.4 % (39-53); RED BLOOD COUNT 2.86 M/uL (4.00-5.50); WHITE BLOOD COUNT 5.7 K/uL (4.1-10.2)
[2017-06-09 06:37] LABS: ANION GAP 10 MEQ/L (2-14); CHLORIDE 99 MEQ/L (99-109); GFR ESTIMATE (CALCULATED) 11 mL/min/; POTASSIUM 4.5 MEQ/L (3.7-5.4); SAMPLE HEMOLYSIS CHECK 0; SAMPLE ICTERIC CHECK 0; SAMPLE LIPEMIA CHECK 0; SODIUM 136 MEQ/L (136-147); UREA NITROGEN (BUN) 40 mg/dL (9-23)
[2017-06-09 07:00] LABS: GLUCOSE 92 mg/dL (70-99)
[2017-06-09 07:40] VITALS: BP 112/55
[2017-06-09 16:04] VITALS: BP 137/63
[2017-06-09 22:34] VITALS: BP 142/64
[2017-06-10 06:14] LABS: EOSINOPHIL (%) 4.7 % (0-5); EOSINOPHIL COUNT 0.4 K/uL (0-0.3); HEMATOCRIT 27.8 % (38.0-50.0); IMMATURE GRANULOCYTE (%) 0.6 % (0.0-0.7); IMMATURE GRANULOCYTE COUNT 0.1 K/uL; INSTRUMENT ABS NEUTROPHIL CT 5.7 K/uL; LYMPHOCYTE COUNT 0.8 K/uL (1.0-2.8); MCH 29.7 PG (29.0-34.0); MCV 92.7 FL (86-99); MEAN PLAT.VOLUME 11.5 uM^3 (9.0-12.4); MONOCYTE (%) 11.7 % (3-12); MONOCYTE COUNT 0.9 K/uL (0-0.8); NEUTROPHIL (%) 72.7 % (45-76); NEUTROPHIL COUNT 5.7 K/uL (1.8-6.4); PLATELET COUNT 170 K/uL (156-360); RBC DIS.WIDTH-CV 17.2 % (11.8-14.6); RBC DIS.WIDTH-SD 58.3 % (39-53); WHITE BLOOD COUNT 7.8 K/uL (4.1-10.2)
[2017-06-10 06:46] LABS: ANION GAP 12 MEQ/L (2-14); CHLORIDE 96 MEQ/L (99-109); GFR ESTIMATE (CALCULATED) 7 mL/min/; GLUCOSE 98 mg/dL (70-99); POTASSIUM 4.9 MEQ/L (3.7-5.4); SAMPLE HEMOLYSIS CHECK 0; SAMPLE ICTERIC CHECK 0; SAMPLE LIPEMIA CHECK 0; SODIUM 136 MEQ/L (136-147); UREA NITROGEN (BUN) 58 mg/dL (9-23)
[2017-06-10 11:35] VITALS: BP 133/61
[2017-06-10 22:50] VITALS: BP 139/64
[2017-06-11 07:47] VITALS: BP 139/61
[2017-06-11 08:42] LABS: EOSINOPHIL (%) 4.6 % (0-5); EOSINOPHIL COUNT 0.4 K/uL (0-0.3); HEMATOCRIT 26.2 % (38.0-50.0); IMMATURE GRANULOCYTE (%) 0.7 % (0.0-0.7); IMMATURE GRANULOCYTE COUNT 0.1 K/uL; LYMPHOCYTE COUNT 0.8 K/uL (1.0-2.8); MCH 29.7 PG (29.0-34.0); MCHC 31.7 G/DL (30.0-36.0); MCV 93.9 FL (86-99); MEAN PLAT.VOLUME 11.7 uM^3 (9.0-12.4); MONOCYTE (%) 9.6 % (3-12); MONOCYTE COUNT 0.9 K/uL (0-0.8); NEUTROPHIL (%) 76.5 % (45-76); PLATELET COUNT 164 K/uL (156-360); RBC DIS.WIDTH-CV 17.2 % (11.8-14.6); RBC DIS.WIDTH-SD 59.3 % (39-53); RED BLOOD COUNT 2.79 M/uL (4.00-5.50); WHITE BLOOD COUNT 9.1 K/uL (4.1-10.2)
[2017-06-11 08:51] LABS: ANION GAP 10 MEQ/L (2-14); CHLORIDE 96 MEQ/L (99-109); POTASSIUM 5.3 MEQ/L (3.7-5.4); SAMPLE HEMOLYSIS CHECK 0; SAMPLE ICTERIC CHECK 0; SAMPLE LIPEMIA CHECK 0; SODIUM 131 MEQ/L (136-147)
[2017-06-11 08:58] LABS: GFR ESTIMATE (CALCULATED) 6 mL/min/; GLUCOSE 115 mg/dL (70-99); UREA NITROGEN (BUN) 78 mg/dL (9-23)
[2017-06-11] MEDS ORDERED: ELIQUIS2.5 MG PO (14:59)
[2017-06-11] MEDS ORDERED: TRAMADOL HCL50 MG PO (15:04)
== END 2017-06-11 17:57 | DRG 190 ==
LOC: EME 09:38 → 5EAST 16:43 → EDOF 16:43 → ENRESERV 16:58 → EME 17:11 → 5EAST 17:37
PROVIDERS: Emergency Medicine; Family Medicine; Internal Medicine; Internal Medicine Nephrology; Specialist
PROC: 30233N1 Transfusion of Nonautologous Red Blood Cells into Peripheral Vein, Percutaneous Approach (ICD-10-PCS; principal; 2017-06-04)
PROC: 5A1D60Z (ICD-10-PCS; 2017-06-11)
DX: J44.9 Chronic obstructive pulmonary disease, unspecified (principal); N18.6 End stage renal disease; D63.1 Anemia in chronic kidney disease; I50.30 Unspecified diastolic (congestive) heart failure; I48.0 Paroxysmal atrial fibrillation; K92.2 Gastrointestinal hemorrhage, unspecified; I13.11 Hypertensive heart and chronic kidney disease without heart failure, with stage 5 chronic kidney disease, or end stage renal disease; I25.10 Atherosclerotic heart disease of native coronary artery without angina pectoris; E78.5 Hyperlipidemia, unspecified; E03.9 Hypothyroidism, unspecified; K21.9 Gastro-esophageal reflux disease without esophagitis; Z99.2 Dependence on renal dialysis; Z95.5 Presence of coronary angioplasty implant and graft
CPT/HCPCS: 71010; 74020; 80048; 80069; 82272; 82607; 82728; 82746; 83010 90; 83540; 83615; 84466; 84484; 84999; 85014; 85018; 85025; 85027; 85045; 86900; 86901; 86920; 87340; 93005; 94640; 94640 76; 94799; 99202; 99281; 99285; J0881; J1644; P9016

== ENCOUNTER 2017-07-22 13:45 | Day surgery (SDC) | payer OTHER ==
[~2017-07-22 13:45] MED LIST changes: +DECARA50000 UNIT PO; +HYDROXYZINE HCL25 MG PO; +LEVOTHYROXINE75 MCG PO; +LORATADINE10 M2 PO; +PERCOCET 5/31 TABLET PO; +RANITIDINE HCL150 MG PO; +TYLENOL EXTRA500 MG PO
[2017-07-22 16:22] LABS: METH RESISTANT S AUREUS PCR NEGATIVE (NEGATIVE)
[2017-07-22 16:24] LABS: PROBE CHECK PASS; SPECIMEN PROCESSING CONTROL PASS
== END 2017-07-22 16:46 | disposition home or self-care (01) ==
LOC: CATH 13:45
PROVIDERS: Surgery
PROC: 057Y3DZ Dilation of Upper Vein with Intraluminal Device, Percutaneous Approach (ICD-10-PCS; principal; 2017-07-22)
DX: T82.858A Stenosis of other vascular prosthetic devices, implants and grafts, initial encounter (principal); I12.0 Hypertensive chronic kidney disease with stage 5 chronic kidney disease or end stage renal disease; N18.6 End stage renal disease; Z99.2 Dependence on renal dialysis; I25.10 Atherosclerotic heart disease of native coronary artery without angina pectoris; I48.91 Unspecified atrial fibrillation; J44.9 Chronic obstructive pulmonary disease, unspecified; Z86.73 Personal history of transient ischemic attack (TIA), and cerebral infarction without residual deficits; Z87.891 Personal history of nicotine dependence
CPT/HCPCS: 87641; C1725; C1769; C1874; C1894; J1644; J2250; J3010